=== PATIENT | male | born 1965 | race Two or more races ===

== ENCOUNTER 2022-03-15 01:11 | Emergency (ER) | payer OTHER ==
[~2022-03-15] VITALS: Ht 172.7 cm; Wt 86.2 kg
[2022-03-15] MEDS ORDERED: AMLODIPINE (01:39)
== END 2022-03-15 11:15 | disposition left against medical advice (07) ==
LOC: ER 01:11
DX: I10 Essential (primary) hypertension (principal)

== ENCOUNTER 2023-04-10 11:05 | Emergency (ER) | payer OTHER ==
[~2023-04-10] VITALS: Ht 172.7 cm; Wt 99.8 kg
[~2023-04-10 11:05] MED LIST: AMLODIPINE
== END 2023-04-10 16:56 | disposition home or self-care (01) ==
LOC: ER 11:05
DX: T75.89XA Other specified effects of external causes, initial encounter (principal)